=== PATIENT | female | born 1960 | race Caucasian/White ===

== ENCOUNTER → 2023-10-11 08:44 | Outpatient (REF) | payer OTHER, SELFPAY ==
[2023-10-11 09:58] LABS: Glycohemoglobin (HgbA1c) 6.7 % (4.0-5.6)
[2023-10-11 10:32] LABS: Vitamin D, 25-OH*** 65.9 ng/mL (30-80)
[2023-10-11 10:49] LABS: ALT (SGPT) 32 U/L (0-35); AST (SGOT) 37 U/L (14-36); Albumin 4.3 g/dl (3.5-5.0); Alkaline Phosphatase 62 U/L (38-126); Blood Urea Nitrogen 21 mg/dl (7-17); Carbon Dioxide 22 mmol/L (22-30); Chloride 105 mmol/L (98-107); Glucose 97 mg/dl (70-99); HDL Cholesterol 56 mg/dl; LDL Cholesterol, Calculated 76 mg/dl; Potassium 4.5 mmol/L (3.5-5.1); Sodium 135 mmol/L (135-145); Total Bilirubin 0.8 mg/dl (0.2-1.3); Total Cholesterol 145 mg/dl (50-199); Total Protein 7.3 g/dl (6.3-8.2); Triglyceride 68 mg/dl (10-149); Very Low Density Lipoprotein 13 mg/dl (0-30); eGFR > 60.00
[2023-10-11 11:22] LABS: Microalbumin, Random Urine <0.6 mg/dl (0.6-1.7)
== END ==
LOC: REG 08:44
PROVIDERS: ATTENDING PHYSICIAN Internal Medicine Endocrinology, Diabetes & Metabolism; FAMILY PHYSICIAN Internal Medicine
DX: E10.9 Type 1 diabetes mellitus without complications (principal); E55.9 Vitamin D deficiency, unspecified; E78.2 Mixed hyperlipidemia
CPT/HCPCS: 36415; 80053; 80061; 82043; 82306; 82570; 83036

== ENCOUNTER → 2024-02-22 10:50 | Outpatient (REF) | payer OTHER, SELFPAY | LOC: RAD 10:50 | PROVIDERS: ATTENDING PHYSICIAN Internal Medicine | DX: R06.2 Wheezing (principal) | CPT/HCPCS: 71046 ==

== ENCOUNTER → 2024-03-04 09:35 | Outpatient (REF) | payer OTHER, SELFPAY | LOC: RAD 09:35 | PROVIDERS: ATTENDING PHYSICIAN Internal Medicine Endocrinology, Diabetes & Metabolism; FAMILY PHYSICIAN Internal Medicine | DX: M81.0 Age-related osteoporosis without current pathological fracture (principal) | CPT/HCPCS: 77080 ==

== ENCOUNTER → 2024-03-22 13:35 | Outpatient (REF) | payer OTHER, SELFPAY | LOC: HWRAD 13:35 | PROVIDERS: ATTENDING PHYSICIAN Internal Medicine Critical Care Medicine; FAMILY PHYSICIAN Internal Medicine | DX: R91.8 Other nonspecific abnormal finding of lung field (principal); R97.8 Other abnormal tumor markers | CPT/HCPCS: 71250 ==

== ENCOUNTER → 2024-04-01 07:22 | Outpatient (REF) | payer OTHER, SELFPAY ==
[2024-04-01 10:12] LABS: ALT (SGPT) 51 U/L (0-35); AST (SGOT) 49 U/L (14-36); Albumin 4.4 g/dl (3.5-5.0); Alkaline Phosphatase 65 U/L (38-126); Blood Urea Nitrogen 17 mg/dl (7-17); Calcium 10.4 mg/dl (8.4-10.2); Carbon Dioxide 28 mmol/L (22-30); Chloride 103 mmol/L (98-107); Glucose 103 mg/dl (70-99); Potassium 4.5 mmol/L (3.5-5.1); Sodium 138 mmol/L (135-145); Total Bilirubin 0.6 mg/dl (0.2-1.3); Total Protein 7.3 g/dl (6.3-8.2); eGFR > 60.00
[2024-04-01 10:32] LABS: Vitamin D, 25-OH*** 55.3 ng/mL (30-80)
[2024-04-01 10:46] LABS: TSH 2.84 uIU/ml (0.47-4.68)
[2024-04-01 16:26] LABS: Glycohemoglobin (HgbA1c) 6.2 % (4.0-5.6)
== END ==
LOC: REG 07:22
PROVIDERS: ATTENDING PHYSICIAN Internal Medicine Endocrinology, Diabetes & Metabolism; REFERRING PHYSICIAN Internal Medicine Critical Care Medicine
DX: E10.9 Type 1 diabetes mellitus without complications (principal); E03.9 Hypothyroidism, unspecified; E55.9 Vitamin D deficiency, unspecified
CPT/HCPCS: 36415; 80053; 82306; 83036; 84443

== ENCOUNTER → 2024-05-13 07:06 | Outpatient (REF) | payer OTHER, SELFPAY ==
[2024-05-13] MEDS: LEXISCAN 0.4 MG IV (09:07)
== END ==
LOC: RCS 07:06
PROVIDERS: OTHER PHYSICIAN Internal Medicine Cardiovascular Disease; OTHER PHYSICIAN Thoracic Surgery (Cardiothoracic Vascular Surgery)
DX: R07.9 Chest pain, unspecified (principal)
CPT/HCPCS: 78452; 93017; A9500; J2785

== ENCOUNTER → 2024-07-05 07:26 | Outpatient (REF) | payer OTHER, SELFPAY ==
[2024-07-05 09:34] LABS: ALT (SGPT) 24 U/L (0-35); AST (SGOT) 30 U/L (14-36); Albumin 4.4 g/dl (3.5-5.0); Alkaline Phosphatase 62 U/L (38-126); Blood Urea Nitrogen 19 mg/dl (7-17); Calcium 10.2 mg/dl (8.4-10.2); Carbon Dioxide 25 mmol/L (22-30); Chloride 104 mmol/L (98-107); Direct Bilirubin 0.1 mg/dl (0.0-0.4); Glucose 109 mg/dl (70-99); HDL Cholesterol 65 mg/dl; LDL Cholesterol, Calculated 87 mg/dl; Potassium 4.4 mmol/L (3.5-5.1); Sodium 145 mmol/L (135-145); Total Bilirubin 0.4 mg/dl (0.2-1.3); Total Cholesterol 164 mg/dl (50-199); Total Protein 7.2 g/dl (6.3-8.2); Triglyceride 64 mg/dl (10-149); Very Low Density Lipoprotein 12 mg/dl (0-30); eGFR > 60.00
[2024-07-05 09:43] LABS: TSH 1.66 uIU/ml (0.47-4.68)
[2024-07-05 12:05] LABS: Glycohemoglobin (HgbA1c) 6.4 % (4.0-5.6)
== END ==
LOC: REG 07:26
PROVIDERS: ATTENDING PHYSICIAN Internal Medicine Endocrinology, Diabetes & Metabolism; OTHER PHYSICIAN Internal Medicine Cardiovascular Disease
DX: E10.9 Type 1 diabetes mellitus without complications (principal); E10.65 Type 1 diabetes mellitus with hyperglycemia
CPT/HCPCS: 36415; 80053; 80061; 82248; 83036; 84443

== ENCOUNTER → 2024-11-13 17:47 | Outpatient (REF) | payer MEDICARE, SELFPAY | LOC: WDC 17:47 | PROVIDERS: ATTENDING PHYSICIAN Obstetrics & Gynecology; FAMILY PHYSICIAN Internal Medicine | DX: Z12.31 Encounter for screening mammogram for malignant neoplasm of breast (principal) | CPT/HCPCS: 77063; 77067 ==

== ENCOUNTER → 2025-02-12 08:50 | Outpatient (REF) | payer MEDICARE, SELFPAY | LOC: HWRCS 08:50 | PROVIDERS: ATTENDING PHYSICIAN Internal Medicine; REFERRING PHYSICIAN Internal Medicine Cardiovascular Disease | DX: I31.39 Other pericardial effusion (noninflammatory) (principal) | CPT/HCPCS: 93306 ==